=== PATIENT | female | born 1945 | race African-American/Black ===

== ENCOUNTER 2024-05-21 07:55 | Observation (INO) | payer MEDICARE ==
[2024-05-18 11:35] LABS: BASOPHILS % 0.9 % (0.0-1.0); EOSINOPHILS # (AUTO) 0.2 (0.0-0.4); EOSINOPHILS % 4.7 % (0.0-6.0); HEMATOCRIT 35.6 % (34.2-44.1); HEMOGLOBIN 10.9 g/dL (12.0-16.0); LYMPHOCYTES # (AUTO) 1.8 (1.0-3.2); LYMPHOCYTES % 39.3 % (18.0-39.1); MEAN CORPUSCULAR HEMOGLOBIN 28.2 pg (28-32); MEAN CORPUSCULAR HGB CONC 30.6 g/dL (31-35); MEAN CORPUSCULAR VOLUME 92.2 fL (81-99); MONOCYTES # (AUTO) 0.4 (0.2-0.8); MONOCYTES % 8.7 % (4.4-11.3); NEUTROPHILS # (AUTO) 2.1 (2.1-6.9); NEUTROPHILS % 46.2 % (38.7-80.0); PLATELET COUNT 217 x10e3/uL (140-360); RED BLOOD COUNT 3.86 x10e6/uL (3.6-5.1); WHITE BLOOD COUNT 4.48 x10e3/uL (4.8-10.8)
[~2024-05-21 07:55] MED LIST: ATORVASTATIN CA10 MG PO; BENICAR5 MG PO; SODIUM CHLORIDE 0.9% 500ML 500 ML ONE; TRANEXAMIC ACID 20 ML ONE; Vancomycin IV 500 MG ONE
[2024-05-21] MEDS ORDERED: ROPIVACAINE 246.25 MG, EPINEPHRINE HCL 1:1000 1ML 0.5 MG, CLONIDINE HCL 0.08 MG, KETORO... INJ ONE (08:00)
[2024-05-21] MEDS: CELECOXIB 200 MG CAP ONE (08:33)
[2024-05-21] MEDS: GABAPENTIN 300 MG CAP ONE (08:33)
[2024-05-21] MEDS: CEFAZOLIN SODIUM 2 GM ONE (08:34)
[2024-05-21] MEDS: LACTATED RINGER'S 1,000 ML ONE (08:34)
[2024-05-21] MEDS: DEXAMETHASONE SOD PHOS 10 MG/1 ML VIAL ONE (08:34)
[2024-05-21] MEDS ORDERED: Vancomycin IV 500 MG ONE (09:50)
[2024-05-21] MEDS ORDERED: SODIUM CHLORIDE 0.9% 500ML 500 ML ONE (09:50)
[2024-05-21] MEDS ORDERED: TRANEXAMIC ACID 20 ML ONE (09:50)
[2024-05-21] MEDS ORDERED: HYDROCODONE/APAP 7.5MG-325MG 1 EA TAB PO PRN (11:45)
[2024-05-21] MEDS ORDERED: DIPHENHYDRAMINE HCL INJ 50 MG/ML VIAL IV PRN (11:45)
[2024-05-21] MEDS ORDERED: ONDANSETRON HCL INJ 2MG/ML 2ML 2 MG/ML VIAL IV PRN (11:45)
[2024-05-21] MEDS ORDERED: HYDROCODONE/APAP 5MG-325MG TAB PO PRN (11:45)
[2024-05-21] MEDS ORDERED: ZOLPIDEM TARTRATE 5 MG TAB PO PRN (11:45)
[2024-05-21] MEDS ORDERED: DOCUSATE SODIUM 100 MG CAP PO PRN (11:45)
[2024-05-21] MEDS ORDERED: SODIUM CHLORIDE 0.9% 1000ML 1,000 ML IV SCH (11:45)
[2024-05-21] MEDS ORDERED: ONDANSETRON HCL INJ 2MG/ML 2ML 2 MG/ML VIAL ONE (11:54)
[2024-05-21] MEDS ORDERED: SEVOFLURANE INHAL SOLN 250 ML PEN BTL ONE (11:54)
[2024-05-21] MEDS ORDERED: PROPOFOL IV EMULSION 10 MG/ML 20 ML VIAL ONE (11:54)
[2024-05-21] MEDS ORDERED: LIDOCAINE HCL 2% LOCAL INJ 5 ML SDV VIAL INJ ONE (11:54)
[2024-05-21] MEDS ORDERED: ACETAMINOPHEN 1000 MG/100 ML IV ONE (11:54)
[2024-05-21] MEDS ORDERED: FAMOTIDINE 20 MG/2 ML VIAL IV ONE (11:54)
[2024-05-21] MEDS ORDERED: FENTANYL CITRATE/PF 100MCG/2 ML INJ ONE ×2 (12:16→12:33)
[2024-05-21] MEDS ORDERED: ROPIVACAINE 0.5% 5 MG/ML 30 ML SDV ONE (12:29)
[2024-05-21] MEDS ORDERED: EPINEPHRINE HCL 1:1000 1ML 1 MG/ML AMP ONE (12:29)
[2024-05-21] MEDS ORDERED: MIDAZOLAM HCL 2 MG/2 ML VIAL ONE (12:33)
[2024-05-21 15:25] VITALS: BP 113/70; PULSE 60; RESP 16; O2SAT 97
[2024-05-21] MEDS: ONDANSETRON HCL INJ 2MG/ML 2ML 2 MG/ML VIAL ONE (15:54)
[2024-05-21] MEDS ORDERED: ASPIRIN81 MG PO (16:51)
[2024-05-21] MEDS ORDERED: ASPIRIN 325 MG TAB PO SCH (17:00)
[2024-05-21] MEDS ORDERED: CELECOXIB 100 MG CAP PO SCH (17:00)
[2024-05-22] MEDS ORDERED: ACETAMINOPHEN 1000 MG/100 ML IV PRN (11:45)
== END 2024-05-21 16:28 | disposition home health service (06) ==
LOC: OR 07:55 → PACU V 11:31
PROVIDERS: ADMIT Specialist; ATTEND Specialist
DX: M17.11 Unilateral primary osteoarthritis, right knee (principal); Z96.652 Presence of left artificial knee joint; I10 Essential (primary) hypertension; E78.5 Hyperlipidemia, unspecified; I49.3 Ventricular premature depolarization; R00.1 Bradycardia, unspecified; M06.9 Rheumatoid arthritis, unspecified; Z87.891 Personal history of nicotine dependence; Z01.810 Encounter for preprocedural cardiovascular examination; Z01.812 Encounter for preprocedural laboratory examination; Z01.818 Encounter for other preprocedural examination; Z79.899 Other long term (current) drug therapy
CPT/HCPCS: 27447; 36415; 71046; 73560; 85025; 86850; 86900; 93005; 97116; 97162; 97530 ×2; C1713 ×2; C1776 ×2; G0378; J0131; J0171; J0690; J1100; J1885; J2001; J2250; J2405; J2704; J2795; J3010; J3370; J7040; J7121